=== PATIENT | female | born 1990 | race Caucasian/White ===

== ENCOUNTER → 2020-02-21 | Outpatient (CLI) | payer MEDICAID ==
[~2020-02-21] MED LIST: AC325T PO; ACHYD1T PO; DCS100C PO; DOCU100C37 PO; FLUC100T6 PO; FLUO20CA25 PO; IBP800T PO; IBUP-1780 PO; MULT-228 PO; NITR-65 PO; OMEP20CA6 PO; ONDAN4ODT PO; OXYC-465 PO; PREN-98 PO; PREN1TAB14 PO; SUMA100T3 PO
== END ==
LOC: LAB 14:41
PROVIDERS: ATTEND Obstetrics & Gynecology
DX: O28.8 Other abnormal findings on antenatal screening of mother (principal)
CPT/HCPCS: 82570; 84156

== ENCOUNTER 2020-02-25 11:46 | Outpatient (CLI) | payer MEDICAID ==
[~2020-02-25] VITALS: Ht 170.2 cm; Wt 122.2 kg
--- NOTE | 2020-02-25 11:52 | NUR ---
LOUSI PRIETO presented to unit via ambulation from ED with c/o cramping and pelvic pain x1 week. Pt. weighed, gowned, voided, and to bed. EFHM and TOCO applied, VS taken. Pt. oriented to bed controls, call light, TV, heat, and A/C controls.
[2020-02-25 12:05] VITALS: BP 132/83
--- NOTE | 2020-02-25 12:05 | NUR ---
reports contractions this week with becoming worse last noc- every 10-20 mins. saw in clinic x2 this week. c/o pelvic pressure. last took Tylenol @ 0700 with no relief in pain. +FM. denies vaginal bleeding or leaking fluid.
--- NOTE | 2020-02-25 12:19 | NUR ---
SVE closed, thick, and posterior.
[2020-02-25 12:20] VITALS: BP 132/83
[2020-02-25 12:27] LABS: BILIRUBIN,URINE NEGATIVE (NEGATIVE); CLARITY,URINE CLEAR; COLOR,URINE YELLOW; GLUCOSE, URINE (UA) NEGATIVE (NEGATIVE); KETONES,URINE NEGATIVE (NEGATIVE); LEUKOCYTE ESTERASE ,URINE 1+ (NEGATIVE); NITRITE,URINE NEGATIVE (NEGATIVE); PROTEIN,URINE NEGATIVE (NEGATIVE)
[2020-02-25 12:37] LABS: BACTERIA,URINE LARGE /HPF; SQUAMOUS EPITHELIAL CELL,UR 25-50 /HPF
--- NOTE | 2020-02-25 12:55 | NUR ---
pt dismissed to private vehicle with family member @ side. pt stable with no sx's of distress noted. Addendum: 02/25/20 at 1522 by NAVEEN BROWN RN correction to dismissal time: 1316
--- NOTE | 2020-02-25 12:55 | NUR ---
was called. monitor tracing, admission c/o's and SVE reviewed. dismissal orders received.
--- NOTE | 2020-02-25 13:06 | NUR ---
dismissal instructions given, verbalizes understanding. reviewed sx's and sx's to RTC. encouraged increase oral intake, Tylenol prn pain. signature page signed, placed on chart.
--- NOTE | 2020-02-28 09:11 | Physician Query-Final Dx ---
JOSE DAVID FERMIN 02/28/20 0911: Clinic Account Progress/Dx Physician Query: Please give diagnosis Please include # weeks gestation Date of Service February 25, 2020 at 11:46 SIXTO MORALES MD 02/29/20 1043: Clinic Account Progress/Dx DIAGNOSIS: Diagnosis false labor at 36 weeks JOSE DAVID FERMIN February 28, 2020 09:11 SIXTO MORALES MD February 29, 2020 10:43
== END 2020-02-25 13:10 | disposition home or self-care (01) ==
LOC: WSo 11:46 → LDRP 11:48 → WSo 13:10
PROVIDERS: ATTEND Obstetrics & Gynecology
DX: O26.899 Other specified pregnancy related conditions, unspecified trimester (principal); R10.9 Unspecified abdominal pain; Z3A.00 Weeks of gestation of pregnancy not specified
CPT/HCPCS: 81000; 87077; 87088; 87186; 99213

== ENCOUNTER 2020-02-28 17:48 | Outpatient (CLI) | payer MEDICAID ==
[~2020-02-28] VITALS: Ht 170.2 cm; Wt 122.2 kg
--- NOTE | 2020-02-28 17:55 | NUR ---
LOUIS PRIETO presented to unit from ED, accompanied by family, with c/o BACK AND PELVIC PAIN. LOUIS PRIETO weighed, gowned, voided, and to bed. EFHM and TOCO applied, VS taken. LOUIS PRIETO oriented to bed controls, call light, TV, heat, and A/C controls.
[2020-02-28] MEDS ORDERED: D5 LR IV SOLUTION 1,000 ML IV ONE (17:58)
[2020-02-28 18:00] VITALS: BP 147/90
[2020-02-28] MEDS ORDERED: D5 LR IV SOLUTION 1,000 ML IV SCH (18:00)
--- NOTE | 2020-02-28 18:15 | NUR ---
straight cath performed by this Rn. sent to lab. SVE see flowsheet. mother at bedside. denies further need at this time.
[2020-02-28 18:20] LABS: BASOPHILS % (AUTO) 0 % (0-10); EOSINOPHILS # (AUTO) 0.1 10^3/uL (0.0-0.3); EOSINOPHILS % (AUTO) 1 % (0-10); HEMATOCRIT 35 % (35-52); HEMOGLOBIN 11.5 G/DL (11.5-16.0); LYMPHOCYTES % (AUTO) 34 % (12-44); MEAN CORPUSCULAR HEMOGLOBIN 26 PG (25-34); MEAN CORPUSCULAR HGB CONC 33 G/DL (32-36); MEAN CORPUSCULAR VOLUME 80 FL (80-99); MONOCYTES # (AUTO) 0.7 X 10^3 (0.0-1.0); MONOCYTES % (AUTO) 6 % (0-12); NEUTROPHILS # (AUTO) 6.9 X 10^3 (1.8-7.8); NEUTROPHILS % (AUTO) 59 % (42-75); PLATELET COUNT 197 10^3/uL (130-400); RED CELL DISTRIBUTION WIDTH 15.2 % (10.0-14.5); WHITE BLOOD COUNT 11.8 10^3/uL (4.3-11.0)
[2020-02-28 18:31] LABS: BILIRUBIN,URINE NEGATIVE (NEGATIVE); CLARITY,URINE CLEAR; COLOR,URINE YELLOW; GLUCOSE, URINE (UA) NEGATIVE (NEGATIVE); KETONES,URINE NEGATIVE (NEGATIVE); LEUKOCYTE ESTERASE ,URINE NEGATIVE (NEGATIVE); NITRITE,URINE POSITIVE (NEGATIVE); PROTEIN,URINE NEGATIVE (NEGATIVE)
--- NOTE | 2020-02-28 18:32 | NUR ---
dr saucedo called and given patient status, vital signs, and cervical exam. new orders received.
[2020-02-28 18:37] LABS: BACTERIA,URINE LARGE /HPF; SQUAMOUS EPITHELIAL CELL,UR RARE /HPF
[2020-02-28 19:17] VITALS: BP 137/90
[2020-02-28] MEDS ORDERED: cefTRIAXone FOR IV USE 2,000 MG in WATER (STERILE) FOR INJECTION 20 ML IV NR (19:30)
--- NOTE | 2020-02-28 20:00 | NUR ---
D/C instructions given & explained, pt. verbalized understanding & signed, copy of D/C instructions to pt. 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 Pt. left [facility] ambulatory, escorted by family member, to home via private vehicle.
--- NOTE | 2020-02-29 08:08 | Physician Query-Final Dx ---
JOSE DAVID FERMIN 02/29/20 0808: Clinic Account Progress/Dx Physician Query: Please give diagnosis Please include # weeks gestation Date of Service February 28, 2020 at 17:48 SIXTO MORALES MD 02/29/20 1044: Clinic Account Progress/Dx DIAGNOSIS: Diagnosis false labor at 36 weeks JOSE DAVID FERMIN February 29, 2020 08:08 SIXTO MORALES MD February 29, 2020 10:44
== END 2020-02-28 20:00 | disposition home or self-care (01) ==
LOC: LDRP 17:48 → WSo 17:48
PROVIDERS: ATTEND Obstetrics & Gynecology
DX: O47.03 False labor before 37 completed weeks of gestation, third trimester (principal); Z3A.36 36 weeks gestation of pregnancy
CPT/HCPCS: 36415; 81000; 82570; 84156; 85025; 87077; 87088; 96361; 96374; 99214

== ENCOUNTER → 2020-03-01 | Outpatient (CLI) | payer MEDICAID ==
[~2020-03-01] MED LIST changes: +NITR100C PO; +PEDI1TAB46 PO
== END ==
LOC: LABNPT 09:58
PROVIDERS: ATTEND Obstetrics & Gynecology
DX: O28.8 Other abnormal findings on antenatal screening of mother (principal)
CPT/HCPCS: 82570; 84156

== ENCOUNTER 2020-03-03 08:49 | Outpatient (RCR) | payer MEDICAID ==
[~2020-03-03] VITALS: Ht 170 cm; Wt 122.2 kg
[~2020-03-03 08:49] MED LIST changes: -NITR100C PO; -PEDI1TAB46 PO
[2020-03-03] MEDS ORDERED: PEDI1TAB46 PO ×2 (13:25)
[2020-03-03] MEDS ORDERED: NITR100C PO ×2 (13:26)
[2020-03-08] MEDS ORDERED: OXYC1TAB12 PO (07:40)
[2020-03-08] MEDS ORDERED: IBUP-1780 PO (07:40)
[2020-03-08] MEDS ORDERED: DCS100C PO (07:40)
== END 2020-03-03 14:45 | disposition home or self-care (01) ==
LOC: PREOP 08:49
PROVIDERS: ATTEND Obstetrics & Gynecology
DX: Z01.818 Encounter for other preprocedural examination (principal); Z11.59 Encounter for screening for other viral diseases
CPT/HCPCS: 87635

== ENCOUNTER 2020-03-03 11:12 | Outpatient (CLI) | payer MEDICAID ==
[~2020-03-03] VITALS: Ht 170.2 cm; Wt 123.5 kg
[2020-03-03] VITALS (14 sets, daily range): BP systolic 131–140; BP diastolic 76–87
--- NOTE | 2020-03-03 11:19 | NUR ---
LOUIS PRIETO presented to unit via ambulation from ED with c/o HIGH BP. Pt. weighed, gowned, voided, and to bed. EFHM and TOCO applied, VS taken. Pt. oriented to bed controls, call light, TV, heat, and A/C controls.
--- NOTE | 2020-03-03 12:07 | NUR ---
DR. MORALES CALLED TO INFORM OF PT'S ARRIVAL, C/O HEADACHE, FHR TRACING AND BP READINGS. ORDERS RECEIVED. PLAN OF CARE REVIEWED WITH COPY TO PT.
--- NOTE | 2020-03-03 12:25 | NUR ---
TYLENOL 1000 MG PO. FOR C/O HEADACHE.
--- NOTE | 2020-03-03 12:27 | NUR ---
LAB HERE TO DRAW BLOOD.
--- NOTE | 2020-03-03 12:29 | NUR ---
EFM OFF. 3 CTXS NOTED IN THE PAST HOUR. FHR 135 WITH MOD VARIABILITY, + ACCELS. REACTIVE NST.
[2020-03-03] MEDS ORDERED: ACETAMINOPHEN 500 MG TAB (TYLENOL) PO ONE (12:30)
[2020-03-03 12:58] LABS: BASOPHILS % (AUTO) 0 % (0-10); EOSINOPHILS # (AUTO) 0.2 10^3/uL (0.0-0.3); EOSINOPHILS % (AUTO) 1 % (0-10); HEMATOCRIT 33 % (35-52); HEMOGLOBIN 10.8 G/DL (11.5-16.0); LYMPHOCYTES # (AUTO) 3.1 X 10^3 (1.0-4.0); LYMPHOCYTES % (AUTO) 26 % (12-44); MEAN CORPUSCULAR HEMOGLOBIN 26 PG (25-34); MEAN CORPUSCULAR HGB CONC 33 G/DL (32-36); MEAN CORPUSCULAR VOLUME 80 FL (80-99); MEAN PLATELET VOLUME 11.6 FL (7.4-10.4); MONOCYTES # (AUTO) 0.6 X 10^3 (0.0-1.0); MONOCYTES % (AUTO) 5 % (0-12); NEUTROPHILS # (AUTO) 7.9 X 10^3 (1.8-7.8); NEUTROPHILS % (AUTO) 67 % (42-75); PLATELET COUNT 180 10^3/uL (130-400); RED CELL DISTRIBUTION WIDTH 15.3 % (10.0-14.5); WHITE BLOOD COUNT 11.8 10^3/uL (4.3-11.0)
[2020-03-03 13:03] LABS: ALBUMIN 2.9 GM/DL (3.2-4.5); CHLORIDE 108 MMOL/L (98-107); POTASSIUM 3.8 MMOL/L (3.6-5.0); SODIUM 137 MMOL/L (135-145)
[2020-03-03 13:05] LABS: CALCIUM 8.3 MG/DL (8.5-10.1)
[2020-03-03 13:06] LABS: GLUCOSE 105 MG/DL (70-105); TOTAL PROTEIN 5.5 GM/DL (6.4-8.2)
[2020-03-03 13:07] LABS: CARBON DIOXIDE 19 MMOL/L (21-32)
[2020-03-03 13:08] LABS: BILIRUBIN,TOTAL 0.2 MG/DL (0.1-1.0)
[2020-03-03 13:09] LABS: ALKALINE PHOSPHATASE 104 U/L (40-136)
[2020-03-03 13:10] LABS: CREATININE SERUM 0.65 MG/DL (0.60-1.30); GFR ESTIMATED > 60
[2020-03-03 13:11] LABS: BUN/CREATININE RATIO 9
[2020-03-03 13:12] LABS: ALANINE AMINOTRANSFERASE 8 U/L (0-55); URIC ACID 6.2 MG/DL (2.6-7.2)
--- NOTE | 2020-03-03 13:19 | NUR ---
DR. MORALES NOTIFIED OF PT'S LAB RESULTS. ORDER FOR DISCHARGE.
[2020-03-03] MEDS ORDERED: PEDI1TAB46 PO ×2 (13:25)
[2020-03-03] MEDS ORDERED: NITR100C PO ×2 (13:26)
--- NOTE | 2020-03-03 13:47 | NUR ---
DISCHARGE INSTRUCTIONS REVIEWED WITH COPY TO PT. STATES UNDERSTANDING OF ALL INSTRUCTIONS AND NEED TO RETURN FOR SCHEDULED SECTION ON Friday03-07-2020 UNLESS HAVING WORSENING S/SX. DISMISSED AMB FROM [facility] IN STABLE CONDITION.
--- NOTE | 2020-03-07 08:22 | Physician Query-Final Dx ---
JOSE DAVID FERMIN 03/07/20 0822: Clinic Account Progress/Dx Physician Query: Please give diagnosis Please include # weeks gestation Date of Service March 03, 2020 at 11:12 SIXTO MORALES MD 03/07/20 0900: Clinic Account Progress/Dx DIAGNOSIS: Diagnosis false labor / 36 weeks NINFA JOSE DAVID FERMIN March 07, 2020 08:22 SIXTO MORALES MD March 07, 2020 09:00
[2020-03-08] MEDS ORDERED: DCS100C PO (07:40)
[2020-03-08] MEDS ORDERED: OXYC1TAB12 PO (07:40)
[2020-03-08] MEDS ORDERED: IBUP-1780 PO (07:40)
== END 2020-03-03 13:47 | disposition home or self-care (01) ==
LOC: LDRP 11:12 → WSo 11:12
PROVIDERS: ATTEND Obstetrics & Gynecology
DX: O47.03 False labor before 37 completed weeks of gestation, third trimester (principal); Z3A.36 36 weeks gestation of pregnancy
CPT/HCPCS: 36415; 80053; 82570; 83615; 84156; 84550; 85025; 99213

== ENCOUNTER 2020-03-05 11:40 | Outpatient (CLI) | payer MEDICAID ==
[~2020-03-05] VITALS: Ht 170.2 cm; Wt 123.5 kg
[~2020-03-05 11:40] MED LIST changes: +NITR100C PO; +PEDI1TAB46 PO
--- NOTE | 2020-03-05 11:45 | NUR ---
LOUIS PRIETO presented to unit via ambulatory from ED, accompanied by mother, with c/o PELVIC PRESSURE/BACK PAIN. LOUIS PRIETO weighed, gowned, voided, and to bed. EFHM and TOCO applied, VS taken. LOUIS PRIETO oriented to bed controls, call light, TV, heat, and A/C controls.
[2020-03-05 12:03] VITALS: BP 146/78
[2020-03-05 12:06] LABS: BILIRUBIN,URINE NEGATIVE (NEGATIVE); CLARITY,URINE CLEAR; COLOR,URINE YELLOW; GLUCOSE, URINE (UA) NEGATIVE (NEGATIVE); KETONES,URINE NEGATIVE (NEGATIVE); LEUKOCYTE ESTERASE ,URINE NEGATIVE (NEGATIVE); NITRITE,URINE NEGATIVE (NEGATIVE); PROTEIN,URINE TRACE (NEGATIVE)
[2020-03-05 12:15] LABS: BACTERIA,URINE TRACE /HPF; SQUAMOUS EPITHELIAL CELL,UR 0-2 /HPF
--- NOTE | 2020-03-05 12:22 | NUR ---
DR. MORALES NOTIFIED OF PT'S ARRIVAL, C/O, GESTATION, UA RESULTS, REVIEW OF STRIP, B/P. ORDERS RECEIVED TO REASSURE PT AND SEND HOME. PT IS SCHEDULED FOR A C/S ON FRIDAY (03/07/20).
--- NOTE | 2020-03-05 12:35 | NUR ---
DISCHARGE PAPERS PROVIDED AND REVIEWED WITH PT, PT VERBALIZES UNDERSTANDING. QUESTIONS ANSWERED. PAPER SIGNED.
--- NOTE | 2020-03-05 12:37 | NUR ---
PT DISCHARGED FROM -[facility] TO [facility] VIA AMBULATORY IN STABLE CONDITION ACC BY MOTHER.
--- NOTE | 2020-03-07 08:25 | Physician Query-Final Dx ---
JOSE DAVID FERMIN 03/07/20 0825: Clinic Account Progress/Dx Physician Query: Please give diagnosis Please include # weeks gestation Date of Service March 05, 2020 at 11:40 SIXTO MORALES MD 03/07/20 0901: Clinic Account Progress/Dx DIAGNOSIS: Diagnosis false labor 36 weeks gestation JOSE DAVID FERMIN March 07, 2020 08:25 SIXTO MORALES MD March 07, 2020 09:01
[2020-03-08] MEDS ORDERED: DCS100C PO (07:40)
[2020-03-08] MEDS ORDERED: IBUP-1780 PO (07:40)
[2020-03-08] MEDS ORDERED: OXYC1TAB12 PO (07:40)
== END 2020-03-05 12:37 | disposition home or self-care (01) ==
LOC: WSo 11:40 → LDRP 11:40 → WSo 12:37
PROVIDERS: ATTEND Obstetrics & Gynecology
DX: O47.03 False labor before 37 completed weeks of gestation, third trimester (principal); Z3A.36 36 weeks gestation of pregnancy
CPT/HCPCS: 81000; 99212

== ENCOUNTER 2022-08-22 05:35 | Outpatient (CLI) | payer MEDICAID ==
[~2022-08-22] VITALS: Ht 170.2 cm; Wt 110.0 kg
[~2022-08-22 05:35] MED LIST changes: +DOCU-239 PO; +FLUC100T10 PO; -FLUC100T6 PO; -OXYC-465 PO; +OXYC-556 PO; +OXYC1TAB12 PO
== END 2022-08-22 15:21 | disposition home or self-care (01) ==
LOC: PREOP 05:35
PROVIDERS: ATTEND Obstetrics & Gynecology
DX: Z01.818 Encounter for other preprocedural examination (principal)

== ENCOUNTER 2022-08-29 11:14 | Day surgery (SDC) | payer MEDICAID ==
[2022-08-29] VITALS (10 sets, daily range): BP systolic 93–165; BP diastolic 45–99
[~2022-08-29] VITALS: Ht 170.2 cm; Wt 110.0 kg
--- NOTE | 2022-08-29 08:12 | Progress Note-Pre Operative ---
Pre-Operative Progress Note Date of Available H&P: Aug 29, 2022 Date H&P Reviewed: Aug 29, 2022 Time H&P Reviewed: 12:30 History & Physical: H&P Reviewed, No changes noted Changes from last HP Interim note on chart/today's date Pre-Operative Diagnosis: Menorrhagia and menometrorrhagia and chronic pelvic pain SIXTO MORALES MD Aug 29, 2022 08:12
--- NOTE | 2022-08-29 08:18 | Discharge Inst-Surgical ---
Discharge Inst-Surgical Depart Medication/Instructions New, Converted or Re-Newed RX: Transmitted to Pharmacy Consults/Follow Up Orders & Referrals Follow Up Appt: Return to clinic in 1 week for suture removal Call to make follow up appt. for patient in 4 weeks. Activity: Rest for 24 hours, than as tolerated. Wound Care: May remove Band-Aid tomorrow. Replace as desired. Keep incisions clean and dry. Wash daily with soap and water. Diet: As tolerated- shower or tub bathe as desired. No driving for 24 hours, no alcoholic beverages for 24 hours, and nothing per vagina (no tampons, douching, or intercourse) for 8 weeks. Patient to return to the clinic as soon as possible for: Temperature greater than 101F, Severe Pain, Foul discharge from incision or vagina, Excessive Bleeding (more than a period). Activity Activity as Tolerated: No Diet Discharge Diet: No Restrictions SIXTO MORALES MD Aug 29, 2022 08:18
[~2022-08-29 11:14] MED LIST changes: +DOCU-143 PO; +OXYC-199 PO
[2022-08-29 11:47] LABS: BASOPHILS # (AUTO) 0.1 10^3/uL (0.0-0.1); BASOPHILS % (AUTO) 1 % (0-10); EOSINOPHILS # (AUTO) 0.4 10^3/uL (0.0-0.3); EOSINOPHILS % (AUTO) 3 % (0-10); HEMATOCRIT 40 % (35-52); HEMOGLOBIN 12.9 g/dL (11.5-16.0); LYMPHOCYTES # (AUTO) 3.8 10^3/uL (1.0-4.0); LYMPHOCYTES % (AUTO) 32 % (12-44); MEAN CORPUSCULAR HEMOGLOBIN 26 pg (25-34); MEAN CORPUSCULAR HGB CONC 33 g/dL (32-36); MEAN CORPUSCULAR VOLUME 81 fL (80-99); MEAN PLATELET VOLUME 10.5 fL (9.0-12.2); MONOCYTES # (AUTO) 0.7 10^3/uL (0.0-1.0); MONOCYTES % (AUTO) 6 % (0-12); NEUTROPHILS # (AUTO) 6.8 10^3/uL (1.8-7.8); NEUTROPHILS % (AUTO) 58 % (42-75); PLATELET COUNT 225 10^3/uL (130-400); WHITE BLOOD COUNT 11.8 10^3/uL (4.3-11.0)
[2022-08-29] MEDS: LACTATED RINGERS 1,000 ML IV PRN ×2 (11:58→13:55)
[2022-08-29] MEDS ORDERED: LIDOCAINE/EPI 1%-1:100,000 (XYLOCAINE) 10 ML ONE (12:15)
[2022-08-29] MEDS ORDERED: proPOfol 200 MG/20 ML (DIPRIVAN) VIAL IV ONE (12:35)
[2022-08-29] MEDS ORDERED: ROCURONIUM 10 MG/ML 5 ML SYRINGE IV ONE (12:35)
[2022-08-29] MEDS ORDERED: ONDANSETRON 4 MG/2 ML (SDV) Z0FRAN ONE (12:35)
[2022-08-29] MEDS ORDERED: SEVOFLURANE (ULTANE) 15 ML INHAL SOLN ONE ×2 (12:35→14:23)
[2022-08-29] MEDS ORDERED: fentaNYL INJ 100 MCG/2 ML AMP ONE (12:35)
[2022-08-29] MEDS ORDERED: LIDOCAINE PF 2% 5 ML (XYLOCAINE) VIAL ONE (12:35)
[2022-08-29] MEDS ORDERED: MIDAZOLAM 2 MG/2 ML (VERSED) VIAL ONE (12:35)
[2022-08-29] MEDS ORDERED: HYDROCORTISONE 100 MG/2 ML (Solu-CORTEF) VIAL ONE (13:09)
[2022-08-29] MEDS ORDERED: HYDROmorphone 2 MG/ML VIAL (DILAUDID) ONE (13:09)
[2022-08-29] MEDS ORDERED: LIDOCAINE/EPI 1%-1:100,000 (XYLOCAINE) 10 ML INJ ONE (13:13)
[2022-08-29] MEDS ORDERED: KETAMINE 50 MG/5 ML SYRINGE ONE (13:21)
[2022-08-29] MEDS: KETOROLAC 30 MG/ML VIAL IV SCH ×2 (13:50→20:32)
[2022-08-29] MEDS ORDERED: ONDANSETRON 4 MG/2 ML (SDV) Z0FRAN IVP PRN ×2 (14:15)
[2022-08-29] MEDS ORDERED: HYDROmorphone 2 MG/ML VIAL (DILAUDID) IV ONE (14:15)
[2022-08-29] MEDS ORDERED: PROMETHAZINE INJ 25 MG/ML (PHENERGAN) AMP IM PRN (14:15)
[2022-08-29] MEDS ORDERED: MEPERIDINE (DEMEROL) INJ 100 MG/ML IVP PRN (14:15)
[2022-08-29] MEDS ORDERED: GLYCOPYRROLATE 0.2 MG/ML (ROBINUL) 2 ML VIAL ONE (14:23)
[2022-08-29] MEDS ORDERED: NEOSTIGMINE (BLOXIVERZ ) 1 MG/1ML 10 ML VIAL ONE (14:23)
[2022-08-29] MEDS ORDERED: KETOROLAC 30 MG/ML VIAL ONE (14:23)
[2022-08-29] MEDS: D5 LR IV SOLUTION 1,000 ML IV SCH ×2 (16:02→23:43)
[2022-08-29] MEDS: oxyCODONE/APAP 5/325MG (PERCOCET 5) TABLET PO PRN ×2 (16:15→20:32)
[2022-08-30] VITALS: BP 142/84
[2022-08-30] MEDS: D5 LR IV SOLUTION 1,000 ML IV SCH (00:08)
[2022-08-30] MEDS: oxyCODONE/APAP 5/325MG (PERCOCET 5) TABLET PO PRN ×2 (00:34→05:26)
--- NOTE | 2022-08-30 00:34 | OPERATIVE REPORT ---
DATE OF SERVICE: 08/29/2022 PREOPERATIVE DIAGNOSES: Menometrorrhagia and chronic pelvic pain. POSTOPERATIVE DIAGNOSES: Menometrorrhagia and chronic pelvic pain with endometriosis. PROCEDURE: Total laparoscopic hysterectomy with bilateral salpingectomy. DESCRIPTION OF PROCEDURE: With the patient in the supine position, under satisfactory general anesthesia, she was repositioned in dorsal lithotomy position, prepped and draped in the usual fashion for abdominal and vaginal surgery using the da Sirisha assistance. A weighted speculum placed in the posterior fornix of the vagina, cervix exposed and grasped anteriorly with single tooth tenaculum. The uterus was sounded to 12 cm with the uterine sound. The cervix was then serially dilated with Maxx dilators to accommodate a CAITLIN II manipulator was placed using a 6 x 8 cm uterine probe and a 25 mm colpotomy ring. Sutures with 1 Vicryl were placed at 3 and 9 o'clock position of the cervix to affix the uterus to the manipulator. Hernández catheter was placed in the urinary bladder. The tenaculum and speculum were removed and the patient was brought into the low dorsal lithotomy position. A 12 mm incision was made superior to the umbilicus in the midline at about 10-12 cm superior to the umbilicus. Veress needle was placed through that incision into the abdominal cavity. Correct placement confirmed with a water drop test and the abdomen was insufflated with 2.4 liters of carbon dioxide. The Veress needle was removed and an attempt was made to place a 12 mm port. That was unsuccessful. Rather than try again, we placed a 5 mm port in the left upper quadrant near palmar's point. That port was placed under direct vision that allowed for visualization of the abdominal wall and then easy placement of the 12 mm port in the supraumbilical incision. Ports of 8 mm were placed through incision on both sides with 8 cm lateral to the umbilicus. The patient was now placed in Trendelenburg allowing the bowel was swept out of the pelvis. The da Sirisha column was advanced on the patient, docked and operative instruments were placed in the right and left lateral ports and I retired to the da Sirisha console. At the console, using a vessel sealer on the right and bipolar fenestrated grasper on the left, the pelvis was first examined. The fallopian tubes were normal, although there was hydrosalpinx on the left. There was obvious endometriosis on the right ovary and on the uterus. Both ureters were seen to peristalse. The laparoscope was rotated. The appendix was a normal vermiform appendix well up out of the pelvis. Attention was turned back to the pelvis. Right fallopian tube was grasped and elevated. The mesosalpinx was clamped, cauterized, and divided using vessel sealer was continued cephalad across to the utero-ovarian pedicle, which was clamped, cauterized, and divided also with the vessel sealer that continued to cross the round ligament, down the broad ligament into the caudal ligaments. Same procedure was performed on the left. The round ligaments were removed with both fallopian tubes with the uterus and conservation of both ovaries. The anterior lower uterine segment, the peritoneum was now exposed using a monopolar shear and placement of the vessel sealer. The anterior lower uterine segment peritoneum was divided and the bladder flap was dissected down off the lower uterine segment. Colpotomy incision was started at 12 o'clock position onto the colpotomy ring. The incision was continued circumferentially until the entire colpotomy ring was exposed and then the uterus with the fallopian tubes still attached was extracted through the vagina. The vaginal cuff was closed with a single suture of V-Loc barbed suture starting on the right angle and continuing across the vaginal cuff completely closed, taking care to include the uterine vessel pedicles bilaterally. Hemostasis was complete, there were 2 small spots of endometriosis in the cul-de-sac. These were touched with electrocautery to destroy them. The sponge and needle counts were correct. No remaining abnormal pathology and hemostasis was assured. The operative procedure laparoscopically was halted and terminated. The operative instruments were removed under direct vision as were the ports. The abdomen was evacuated with the insufflated gas in the process of removing the ports. Skin incisions were closed with nylon sutures. The fascia at the supraumbilical incision was closed with a [id number] suture of 2-0 Vicryl. The left upper quadrant 5 mm port site was closed with nylon sutures. Speculum was replaced in the vagina. The vaginal cuff was examined and it was completely reapproximated, completely hemostatic. The sponge and needle counts were correct. Hemostasis assured. BLOOD LOSS: Minimal. The patient was uneventfully awakened from her general anesthesia and transferred to recovery room in stable condition. Job ID: [id number] DocumentID: [id number] Dictated Date: 08/29/2022 14:31:44 Ship'S Pilot Date: 08/30/2022 00:31:00 Dictated By: SIXTO MORALES MD
[2022-08-30] MEDS: KETOROLAC 30 MG/ML VIAL IV SCH ×2 (02:25→08:58)
[2022-08-30 04:00] VITALS: BP 127/78
[2022-08-30] MEDS ORDERED: FLU QUADRIvalent (6 months+) 60 mcg/0.5 ml 2022-23 (Fluzone) IM ONE (06:45)
--- NOTE | 2022-08-30 07:01 | Progress Note ---
Standard Progress Note Progress Notes/Assess & Plan Date Seen by a Provider: Aug 30, 2022 Time Seen by a Provider: 07:00 Progress/Assessment & Plan This patient is without complaint. She is ambulating, voiding, tolerating oral intake well has good pain control. Vital Signs Date Time Temp Pulse Resp B/P (MAP) Pulse Ox O2 Delivery O2 Flow Rate FiO2 08/30/22 04:00 36.3 64 16 127/78 (94) 95 Room Air 08/30/22 00:00 36.1 88 18 142/84 (103) 96 Room Air 08/29/22 22:00 87 137/79 (98) 08/29/22 21:00 96 Room Air 08/29/22 20:30 36.7 87 18 165/98 (120) 97 08/29/22 20:03 Room Air 08/29/22 15:15 36.0 68 18 149/83 (105) 96 Room Air 08/29/22 15:05 Room Air 08/29/22 15:00 36.4 16 95/56 (69) 95 Room Air 08/29/22 14:50 16 93/45 (61) 99 OxyMask 2.00 08/29/22 14:40 20 137/79 (98) 100 OxyMask 4.00 08/29/22 14:40 OxyMask 6.00 08/29/22 14:30 14 128/75 (92) 100 OxyMask 6.00 08/29/22 14:25 OxyMask 8.00 08/29/22 14:20 13 128/68 (88) 100 OxyMask 6.00 08/29/22 14:09 36.0 12 139/99 (112) 99 OxyMask 8.00 08/29/22 14:09 T Piece 10.00 08/29/22 11:30 36.6 80 20 138/98 (111) 97 I & O 08/30/22 07:00 Intake Total 5500 ml Output Total 2150 ml Balance 3350 ml Vital signs are stable. Patient is afebrile. The abdomen is benign. The surgical incisions are intact Extremities show no clubbing or cyanosis. There is no Homans' sign. Assessment and plan Postoperative day #1 doing well. Weight plan is for discharge home with follow- up in clinic Final Diagnosis Menometrorrhagia SIXTO MORALES MD Aug 30, 2022 07:01
--- NOTE | 2022-08-30 07:36 | Anesthesia-General Post-Op ---
General Patient Condition Mental Status/LOC: Same as Preop Cardiovascular: Satisfactory Nausea/Vomiting: Absent Respiratory: Satisfactory Pain: Controlled Complications: Absent Post Op Complications Complications None Follow Up Care/Instructions Patient Instructions None needed. Anesthesia/Patient Condition Patient Condition Patient is doing well, no complaints, stable vital signs, no apparent adverse anesthesia problems. No complications reported per nursing. DAYNA SCOTT CRNA Aug 30, 2022 07:36
[2022-08-30 08:00] VITALS: BP 128/90
[2022-08-30] MEDS ORDERED: IBUPROFEN 800 MG (MOTRIN) TAB PO ONE (08:55)
[2022-08-30] MEDS ORDERED: DOCUSATE SODIUM 100 MG (COLACE) CAP PO SCH (09:00)
[2022-08-30 09:15] VITALS: BP 128/90
[2022-08-30] MEDS ORDERED: IBUPROFEN 800 MG (MOTRIN) TAB PO SCH (14:15)
== END 2022-08-30 09:15 | disposition home or self-care (01) ==
LOC: SDC 11:14 → WS 15:08 → SDC 08-30 09:15
PROVIDERS: ATTEND Obstetrics & Gynecology
DX: N80.03 Adenomyosis of the uterus (principal); N83.8 Other noninflammatory disorders of ovary, fallopian tube and broad ligament; N80.101 Endometriosis of right ovary, unspecified depth; N80.00 Endometriosis of the uterus, unspecified; F17.210 Nicotine dependence, cigarettes, uncomplicated; E66.9 Obesity, unspecified; Z68.38 Body mass index [BMI] 38.0-38.9, adult
CPT/HCPCS: 36415; 84703; 85025; 87081; 94664